=== PATIENT | female | born 1955 | race Caucasian/White ===

== ENCOUNTER 2019-09-26 08:16 | Outpatient (CLI) | payer OTHER, SELFPAY ==
--- NOTE | ~2019-09-26 | XR_ITS ---
EXAMINATION: XR shoulder RT min 2V DATE: 09/26/2019 15:11 INDICATION: Right shoulder pain. TECHNIQUE: 4 views of right shoulder were obtained. COMPARISON: None. FINDINGS: Bone alignment is normal. No fracture. Glenohumeral joint is normal. 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 IMPRESSION: 1. Osteolysis of distal clavicle, which may be seen with repetitive microtrauma, rheumatoid arthritis , or hyperparathyroidism. Reviewed, dictated and finalized at location A. IMPRESSION: 1. Osteolysis of distal clavicle, which may be seen with repetitive microtrauma , rheumatoid arthritis, or hyperparathyroidism.
[2019-09-26 08:46] LABS: Hematocrit 40.1 % (37.0-47.0); Hemoglobin 13.1 g/dL (12.0-15.0); Mean Corpuscular HGB Conc 32.7 g/dl (32-36); Mean Corpuscular Hemoglobin 29.5 pg (26-34); Mean Corpuscular Volume 90.3 fl (80-100); Mean Platelet Volume 9.6 fl (7.4-10.4); Platelet Count Result 265 k/mm3 (150-375); Red Blood Count 4.44 M/mm3 (4.2-5.4); Red Cell Distribution Width 12.8 % (11.5-14.5); White Blood Count 6.3 K/mm3 (4.5-10.0)
[2019-09-26 09:04] LABS: Alanine Aminotransferase 11 U/L (4-35); Albumin Level 4.4 g/dL (3.5-5.1); Alkaline Phosphatase 56 U/L (38-126); Aspartate Amino Transferase 32 U/L (14-36); Bilirubin,Total 0.6 mg/dL (0.2-1.3); Blood Urea Nitrogen 11 mg/dL (7-17); Calcium 9.2 mg/dL (8.4-10.2); Carbon Dioxide 32 mmol/L (22-30); Chloride 101 mmol/L (98-107); Cholesterol 218 mg/dL (0-200); Estimated Glomerular Filt Rate > 60; Glucose 94 mg/dL (65-105); HDL Direct 44 mg/dL; Sodium 137 mmol/L (137-145); Triglycerides 107 mg/dL (<150)
[2019-09-26 09:15] LABS: LDL Cholesterol Direct 145 mg/dL
[2019-09-26 09:30] LABS: Thyroid Stimulating Hormone 0.966 uIU/mL (0.465-4.680)
== END 2019-09-26 08:17 | disposition home or self-care (01) ==
PROVIDERS: PCP Internal Medicine; Visit Provider Internal Medicine
DX: M25.521 Pain in right elbow (principal); R53.83 Other fatigue; I10 Essential (primary) hypertension
CPT/HCPCS: 36415; 73030; 80053; 80061; 84443; 85027

== ENCOUNTER 2019-10-03 11:37 | Outpatient (CLI) | payer OTHER, SELFPAY ==
[2019-10-03 13:21] LABS: Rheumatoid Factor < 8.6 IU/ML (<12)
[2019-10-03 13:47] LABS: Erythrocyte Sedimentation Rate 8 mm/hr (0-20)
[2019-10-07 11:32] LABS: Anti Cyclic Citrullinated Pept <16 Units (<20)
== END 2019-10-03 11:38 | disposition home or self-care (01) ==
PROVIDERS: PCP Internal Medicine; Visit Provider Physician Assistant Medical
DX: M89.8X1 Other specified disorders of bone, shoulder (principal)
CPT/HCPCS: 36415; 85652; 86200; 86430

== ENCOUNTER 2019-10-13 07:13 | Outpatient (CLI) | payer OTHER, SELFPAY ==
--- NOTE | ~2019-10-13 | MM_ITS ---
EXAMINATION: MM screening [facility] BI w pamela HISTORY: Screening mammogram TECHNIQUE: Craniocaudal and mediolateral oblique 3-D tomosynthesis images were obtained and synthetic 2-D images were generated. CAD analysis was submitted and interpreted. COMPARISON: 08/19/2018, 07/10/2017, 06/30/2016 BREAST PARENCHYMAL COMPOSITION: The breasts are heterogeneously dense, which may obscure small masses . FINDINGS: Scattered benign-appearing calcifications are present. A stable intramammary lymph node is present in the upper outer quadrant of the left breast. There is no evidence of suspicious mass, calc ification, or architectural distortion to suggest malignancy in either breast. There has been no susp icious interval change. IMPRESSION: 1. No mammographic evidence of malignancy. 2. Recommend routine screening mammography in one year. BI-RADS Category 2: Benign finding(s). Reviewed, dictated and finalized at location A.
== END 2019-10-13 07:14 | disposition home or self-care (01) ==
LOC: ANHIMG 07:16
PROVIDERS: PCP Internal Medicine; Visit Provider Internal Medicine
DX: Z12.31 Encounter for screening mammogram for malignant neoplasm of breast (principal)
CPT/HCPCS: 77063; 77067

== ENCOUNTER 2020-10-22 07:48 | Outpatient (CLI) | payer OTHER, SELFPAY ==
--- NOTE | ~2020-10-22 | MM_ITS ---
EXAMINATION: MM screening [facility] BI w pamela HISTORY: Screening mammogram TECHNIQUE: Craniocaudal and mediolateral oblique 3-D tomosynthesis images were obtained and synthetic 2-D images were generated. CAD analysis was submitted and interpreted. COMPARISON: 10/13/2019, 08/19/2018, 07/10/2017 BREAST PARENCHYMAL COMPOSITION: The breasts are heterogeneously dense, which may obscure small masses . FINDINGS: There is no evidence of suspicious mass, calcification, or architectural distortion to sugg est malignancy in either breast. There has been no suspicious interval change. IMPRESSION: 1. No mammographic evidence of malignancy. 2. Recommend routine screening mammography in one year. BI-RADS Category 1: Negative Reviewed, dictated and finalized at location A.
== END 2020-10-22 07:49 | disposition home or self-care (01) ==
LOC: ANHIMG 07:49
PROVIDERS: PCP Internal Medicine; Visit Provider Internal Medicine
DX: Z12.31 Encounter for screening mammogram for malignant neoplasm of breast (principal)
CPT/HCPCS: 77063; 77067

== ENCOUNTER 2021-03-24 15:57 | Outpatient (CLI) | payer OTHER, SELFPAY ==
[2021-03-24 18:00] LABS: SARS-CoV-2 RNA PCR Negative (Negative)
== END 2021-03-24 15:58 | disposition home or self-care (01) ==
LOC: CHSLAB 16:05
PROVIDERS: PCP Internal Medicine; Visit Provider Internal Medicine
DX: Z20.822 Contact with and (suspected) exposure to COVID-19 (principal); Z03.818 Encounter for observation for suspected exposure to other biological agents ruled out
CPT/HCPCS: C9803; U0003; U0005

== ENCOUNTER 2021-04-04 15:06 | Outpatient (CLI) | payer OTHER, SELFPAY ==
[2021-04-04 18:45] LABS: SARS-CoV-2 RNA PCR Positive (Negative)
== END 2021-04-04 15:07 | disposition home or self-care (01) ==
LOC: CHSLAB 15:08
PROVIDERS: PCP Internal Medicine; Visit Provider Internal Medicine
DX: U07.1 COVID-19 (principal)
CPT/HCPCS: C9803; U0003; U0005

== ENCOUNTER 2021-12-22 07:24 | Outpatient (CLI) | payer OTHER, SELFPAY ==
--- NOTE | ~2021-12-22 | MM_ITS ---
EXAMINATION: MM screening [facility] BI w pamela HISTORY: Screening mammogram TECHNIQUE: Craniocaudal and mediolateral oblique 3-D tomosynthesis images were obtained and synthetic 2-D images were generated. CAD analysis was submitted and interpreted. COMPARISON: No prior mammogram is available for comparison at this institution. BREAST PARENCHYMAL COMPOSITION: FINDINGS: Left breast: There is no evidence of suspicious mass, calcification, or architectural disto rtion to suggest malignancy in the left breast. There has been no suspicious interval change. Right breast: There is asymmetry on the right, with interval increased density suggested in the poste rior central right breast on MLO projection. Diagnostic right mammogram is recommended, with ultrasou nd if required IMPRESSION: 1. Right mammographic asymmetry 2. Diagnostic right mammogram is recommended, with ultrasound if required BI-RADS Category 0: Incomplete: Needs additional imaging evaluation. Reviewed, dictated and finalized at location A.
== END 2021-12-22 07:25 | disposition home or self-care (01) ==
PROVIDERS: PCP Family Medicine; Visit Provider Physician Assistant Medical
DX: Z12.31 Encounter for screening mammogram for malignant neoplasm of breast (principal); R92.8 Other abnormal and inconclusive findings on diagnostic imaging of breast
CPT/HCPCS: 77063; 77067

== ENCOUNTER 2022-01-06 10:20 | Outpatient (CLI) | payer OTHER, SELFPAY ==
[2022-01-06 11:06] LABS: Basophils Absolute Auto 0.1 K/mm3 (0.0-0.1); Basophils Percent Auto 0.6 % (0.2-1.2); Eosinophils Absolute Auto 0.1 K/mm3 (0-0.3); Eosinophils Percent Auto 1.4 % (0-4.4); Hematocrit 40.8 % (37.0-47.0); Hemoglobin 13.4 g/dL (12.0-15.0); Immature Granulocyte Absolute 0.03 K/mm3 (0.00-0.031); Immature Granulocyte Percent A 0.4 % (0-0.5); Lymphocytes Absolute Auto 2.07 K/mm3 (0.9-3.2); Lymphocytes Percent Auto 25.9 % (18.3-44.2); Mean Corpuscular HGB Conc 32.8 g/dl (32-36); Mean Corpuscular Hemoglobin 30.1 pg (26-34); Mean Corpuscular Volume 91.7 fl (80-100); Mean Platelet Volume 9.7 fl (7.4-10.4); Monocytes Absolute Auto 0.5 K/mm3 (0.1-0.6); Monocytes Percent Auto 5.9 % (2.6-8.5); Neutrophils Absolute Auto 5.3 K/mm3 (1.3-6.7); Neutrophils Percent Auto 65.8 % (45.5-73.1); Platelet Count Result 269 k/mm3 (150-375); Red Blood Count 4.45 M/mm3 (4.2-5.4); Red Cell Distribution Width 12.8 % (11.5-14.5)
[2022-01-06 11:17] LABS: Alanine Aminotransferase 14 U/L (6-35); Albumin Level 4.4 g/dL (3.5-5.1); Alkaline Phosphatase 62 U/L (38-126); Anion Gap 7 mmol/L (8-16); Aspartate Amino Transferase 32 U/L (14-36); Bilirubin,Total 0.5 mg/dL (0.2-1.3); Blood Urea Nitrogen 9 mg/dL (7-17); Calcium 9.1 mg/dL (8.4-10.2); Carbon Dioxide 31 mmol/L (22-30); Chloride 99 mmol/L (98-107); Cholesterol 231 mg/dL (0-200); Estimated Glomerular Filt Rate > 60; Glucose 91 mg/dL (65-110); HDL Direct 49 mg/dL; Potassium 4.1 mmol/L (3.4-5.0); Sodium 137 mmol/L (137-145); Triglycerides 124 mg/dL (<150)
[2022-01-06 11:28] LABS: LDL Cholesterol Direct 146 mg/dL
[2022-01-06 11:47] LABS: Thyroid Stimulating Hormone 0.352 uIU/mL (0.465-4.680)
[2022-01-06 12:57] LABS: Vitamin D 25 Hydroxy 47.6 ng/mL
[2022-01-06 17:28] LABS: Free T4 Free Thyroxine 1.13 ng/mL (0.78-2.19)
[2022-01-06 17:48] LABS: Total Triiodothyronine (T3) 1.07 NG/ML (0.97-1.69)
[2022-01-09 01:58] LABS: Thyroid Peroxidase Antibodies 3 IU/mL (<9)
[2022-01-09 17:05] LABS: Thyrotropin Receptor Antibody <1.00 IU/L (<=2.00)
== END 2022-01-06 10:21 | disposition home or self-care (01) ==
PROVIDERS: PCP Physician Assistant Medical; Visit Provider Physician Assistant Medical
DX: Z00.00 Encounter for general adult medical examination without abnormal findings (principal); E05.90 Thyrotoxicosis, unspecified without thyrotoxic crisis or storm; R00.2 Palpitations; K21.9 Gastro-esophageal reflux disease without esophagitis; K58.9 Irritable bowel syndrome, unspecified; R39.15 Urgency of urination
CPT/HCPCS: 36415; 80053; 80061; 82306; 83519; 83735; 84439; 84443; 84480; 85025; 86376

== ENCOUNTER 2022-01-13 11:54 | Outpatient (CLI) | payer OTHER, MEDICARE, SELFPAY ==
--- NOTE | ~2022-01-13 | MM_ITS ---
EXAMINATION: MM diagnostic [facility] RT w pamela HISTORY: Focal asymmetries of the right breast on screening mammogram TECHNIQUE: Additional 3-D tomosynthesis images of the right breast were performed and synthetic 2-D i mages were generated. CAD analysis was submitted and interpreted. COMPARISON: 12/22/2021, 10/22/2020, 10/13/2019, 08/19/2018 FINDINGS: There is a return to baseline fibroglandular appearance with spot compression of the right breast in the areas questioned on screening mammogram. No suspicious mass, calculus, or architectural distortion are identified. IMPRESSION: 1. No mammographic evidence of malignancy. 2. Recommend routine screening mammography in one year. BI-RADS Category 1: Negative Reviewed, dictated and finalized at location A.
== END 2022-01-13 11:55 | disposition home or self-care (01) ==
LOC: ANHIMG 11:57
PROVIDERS: PCP Physician Assistant Medical; Visit Provider Physician Assistant Medical
DX: R92.8 Other abnormal and inconclusive findings on diagnostic imaging of breast (principal)
CPT/HCPCS: 77061; 77065; G0279

== ENCOUNTER 2022-02-10 00:40 | Day surgery (SDC) | payer OTHER, MEDICARE, SELFPAY ==
[2022-02-01 14:05] VITALS: BMI 28.3
[2022-02-01 14:31] VITALS: BMI 28.3
[2022-02-10 11:47] VITALS: BP 107/85; PULSE 90; RESP 20; TEMP 36.1; O2SAT 98; BMI 29.1
[2022-02-10] MEDS: LACTATED RINGERS 1,000 ML 150 ML IV CONT (11:58)
--- NOTE | 2022-02-10 12:10 | WPDANESEPPF ---
Anes - Initial Pre Proc Eval Procedure: Operation Date: 02/10/22 13:00 Proposed Procedures p Esophagogastroduodenoscopy & Colonoscopy - Bobby Serrano MD Date/Time: 02/10/22 12:10 Surgeon: Bobby Serrano MD Pre Op Diagnosis: dysphagia, diarrhea, change in bowel habits Patient Data Age: 66 Gender: F Height: 1.6 m Weight: 74.7 kg Last Vital Signs Temp 96.9 F L 02/10/22 11:47 Pulse 90 02/10/22 11:47 Resp 20 02/10/22 11:47 BP 107/85 02/10/22 11:47 Pulse Ox 98 02/10/22 11:47 O2 Del Method Room Air 02/10/22 11:47 Allergies Allergy/AdvReac Type Severity Reaction Status Date / Time No Known Allergies Allergy Verified 02/10/22 11:45 Home Medications Medication Instructions Recorded Confirmed Type multivitamin 1 tablet PO DAILY 05/11/20 02/10/22 History acetaminophen 500 mg capsule 500 mg PO Q6H PRN Pain 12/27/21 02/10/22 History (Tylophen) ascorbic acid (vitamin C) 500 mg 500 mg PO DAILY 01/01/22 02/10/22 History tablet cholecalciferol (vitamin D3) 25 25 mcg PO BID 01/01/22 02/10/22 History mcg (1,000 unit) capsule krill oil 500 mg capsule 500 mg PO DAILY 01/01/22 02/10/22 History pyridoxine (vitamin B6) 100 mg 100 mg PO DAILY 01/01/22 02/10/22 History tablet zinc gluconate 50 mg tablet 50 mg PO DAILY 01/01/22 02/10/22 History omeprazole 20 mg tablet,delayed 20 mg PO DAILY #30 tabs 01/12/22 02/10/22 Rx release Patient hx anesthesia problems: none Family hx anesthesia problems: none Results Review: All pre-operative results and documents have been reviewed as part of the pre-operative evaluation. [facility] Past Medical History Medical History (Updated 01/12/22 @ 11:07 by Jessie Agarwal, VERONICA) Asthma Borderline hypertension Change in bowel habit Dysphagia Family history of esophageal cancer Family hx of colon cancer GERD with esophagitis Hyperthyroidism Intermittent diarrhea Overweight (BMI 25.0-29.9) Surgical History Surgical History History of bladder suspension procedure History of hysterectomy 2002 History of tonsillectomy age 3-4yo Family History Family History Father Esophageal cancer Alcoholism Mother Carcinoma of colon Lung cancer Hypothyroidism Social History Social History Smoking status: Never smoker Alcohol intake: current Drinks per week: 1 Substance use: never Substance use type: does not use Living arrangements: with family Gender identity (if verbalized by the patient): Female Spiritual care concerns: No Anes - Eval Final PreProcedure Day of Procedure 02/10/22 12:10 Patient weight: overweight Airway: Mallampati scale ASA classification: II Anesthesia type and monitoring: general GIVS and standard monitoring Results Review: All pre-operative results and documents have been reviewed as part of the pre-operative evaluation. Informed Consent: The patient's anesthetic plan and its attendant risks and benefits were discussed with the patient/family/POA. Questions were solicited and answers provided to the satisfaction of the patient/family/POA.
--- NOTE | 2022-02-10 12:20 | WPDHPUPDATE1 ---
History and Physical Update Update Date/Time: 02/10/22 12:20 History and Physical has been reviewed, including an updated exam of the patient. There are NO changes in the patient's condition. Risks, benefits, and alternatives have been discussed and questions answered. Patient agrees to proceed with procedure.
--- NOTE | 2022-02-10 12:41 | SUR.OPER ---
EGD start 1231 end 1235, Colonoscopy start 1241 end 1252
[2022-02-10 12:57] VITALS: BP 109/63; PULSE 74; RESP 16; O2SAT 99
[2022-02-10 13:07] VITALS: BP 127/68; PULSE 73; RESP 24; O2SAT 99
[2022-02-10 13:17] VITALS: BP 149/80; PULSE 72; RESP 20; O2SAT 98
== END 2022-02-10 13:40 | disposition home or self-care (01) ==
PROVIDERS: PCP Physician Assistant Medical; Visit Provider Internal Medicine Gastroenterology
PROC: 0DJ08ZZ Inspection of Upper Intestinal Tract, Via Natural or Artificial Opening Endoscopic (ICD-10-PCS; CPT 43235; principal; 2022-02-10 13:00)
DX: K57.30 Diverticulosis of large intestine without perforation or abscess without bleeding (principal); K64.8 Other hemorrhoids; Z80.0 Family history of malignant neoplasm of digestive organs; K21.9 Gastro-esophageal reflux disease without esophagitis; K44.9 Diaphragmatic hernia without obstruction or gangrene; K29.70 Gastritis, unspecified, without bleeding; R13.10 Dysphagia, unspecified; K58.9 Irritable bowel syndrome, unspecified; E05.90 Thyrotoxicosis, unspecified without thyrotoxic crisis or storm
CPT/HCPCS: 45380; 43239; 88305; J2704; J7120

== ENCOUNTER 2022-03-23 12:35 | Outpatient (CLI) | payer OTHER, MEDICARE, SELFPAY | END 2022-03-23 12:36 | disposition home or self-care (01) | LOC: ANHLAB 12:39 | PROVIDERS: PCP Physician Assistant Medical; Visit Provider Physician Assistant Medical | DX: E05.90 Thyrotoxicosis, unspecified without thyrotoxic crisis or storm (principal) | CPT/HCPCS: 36415; 84443 ==

== ENCOUNTER 2022-08-09 08:58 | Outpatient (CLI) | payer MEDICARE, OTHER, SELFPAY ==
--- NOTE | 2022-08-25 16:40 | WPDHOMESLEEP ---
Sleep Study - Home Unattended Date of Study: 08/09/22 Ordering Provider: Gabriel Wiley DO Interpreting Provider: Daphnie Sepulveda DO Home Sleep Study Type: Watch PAT Height: 1.63 m Weight: 74.843 kg Body Mass Index: 28.3 Neck Circumference (inches): 14 [place]: 8 Reason for Sleep Study Snoring, daytime hypersomnia Sleep History The patient is a 66-year-old female with asthma, dysphasia, GERD and hyperthyroidism that had a sleep study ordered by her physical education aide for evaluation of sleep apnea. She denies awakening from sleep short of breath. She occasionally awakens at night with heartburn, belching or cough. She rarely snores and is never loud enough that others complain. She denies having trouble sleeping when she has a cold. She denies waking up gasping for air throughout the night. She denies having breathing problems at night observed by herself or others. She occasionally sweats excessively at night. She occasionally has heart palpitations or irregular heartbeats during the night. She occasionally falls asleep during the day but rarely falls asleep while driving. He denies sleep paralysis, cataplexy and hypnagogic / hypnopompic hallucinations. She rarely has trouble school work due to sleepiness. She denies feeling afraid of going to sleep. She rarely has nightmares rarely remembers her dreams. She occasionally has thoughts racing through her mind. She occasionally feels sad or depressed. She frequently has anxiety. She occasionally has muscular tension. She denies noticing parts of body jerk. She denies kicking during the night. He denies having crawling and aching feelings in her legs and denies having leg pain during the night. She occasionally grinds her teeth during sleep but never awakens with morning jaw pain. She is occasionally bothered by pain during the day but never awakened by pain during the night. He denies waking up feeling stiff in the morning. She occasionally wakes up with sore or achy muscles. She rarely wakes up with pain in the neck, spine other joints. She goes to bed between 10 30-10 40 5:00 p.m. on weekdays and around 11:30 p.m. on weekends. It takes her 20 minutes to fall asleep. She wakes up 1-2 times throughout the night to urinate and can not either fall asleep within 5 minutes or is unable to fall back asleep she wakes up at 6:15 a.m. on weekdays and around 8:00 a.m. on the weekends. She typically gets 7 hours of sleep per night. She will stay in bed for 15-20 minutes after waking up in the morning. She currently lives with her . She does not consume any caffeinated beverages within 2 hours of bedtime. She denies engaging in physical exercise before bedtime. She will read before falling asleep. She will occasionally watch television before falling asleep. She will occasionally take naps on afternoon or the evening and they are ulceration. She drinks 2-3 caffeinated beverages per day. He drinks alcoholic beverages 1-2 times per month. She denies tobacco and recreational drug use. [facility] Past Medical History Medical History Asthma Borderline hypertension Change in bowel habit Dysphagia Family history of esophageal cancer Family hx of colon cancer GERD with esophagitis Hyperthyroidism Intermittent diarrhea Overweight (BMI 25.0-29.9) Surgical History Surgical History History of bladder suspension procedure History of hysterectomy 2002 History of tonsillectomy age 3-4yo Family History Family History Father Esophageal cancer Alcoholism Mother Carcinoma of colon Lung cancer Hypothyroidism Social History Social History Smoking status: Never smoker Alcohol intake: current Drinks per week: 1 Substance use: never Substance
[2022-08-25 16:45] VITALS: BMI 28.3
--- NOTE | 2023-03-09 14:26 | SLEEP ---
pt is to return to lab for titration
== END 2022-08-11 09:37 | disposition home or self-care (01) ==
LOC: ANHCSM 09:14
PROVIDERS: PCP Physician Assistant Medical; Visit Provider Internal Medicine Cardiovascular Disease
DX: G47.10 Hypersomnia, unspecified (principal); G47.33 Obstructive sleep apnea (adult) (pediatric)
CPT/HCPCS: 95800

== ENCOUNTER 2022-08-16 15:08 | Outpatient (CLI) | payer MEDICARE, OTHER, SELFPAY ==
--- NOTE | ~2022-08-16 | US_ITS ---
EXAMINATION: US soft tissue UE LT DATE: 08/16/2022 15:34 INDICATION: Localized swelling, mass and lump at the palmar aspect of the left third digit TECHNIQUE: Multiple grayscale and Doppler ultrasound images of the region of concern at the palmar as pect of the left third digit were obtained. COMPARISON: None FINDINGS: 1.3 x 1.1 x 0.5 cm anechoic cyst located in the subcutaneous tissues superficial to the flexor tendon sheath most consistent with a ganglion cyst likely arising from one of the adjacent joint spaces. Th e underlying flexor tendon appears normal with no surrounding tenosynovitis. IMPRESSION: 1. 1.3 x 1.1 x 0.5 cm anechoic likely ganglion cyst in the palmar subcutaneous tissues at the left th ird digit region of concern. Reviewed, dictated and finalized at location A. IMPRESSION: 1. 1.3 x 1.1 x 0.5 cm anechoic likely ganglion cyst in the palmar subcutaneous tissues at the left third digit region of concern.
== END 2022-08-16 15:09 | disposition home or self-care (01) ==
LOC: ANHIMG 15:14
PROVIDERS: PCP Physician Assistant Medical; Visit Provider Physician Assistant Medical
DX: R22.32 Localized swelling, mass and lump, left upper limb (principal)
CPT/HCPCS: 76882

== ENCOUNTER 2022-09-26 16:04 | Outpatient (CLI) | payer MEDICARE, OTHER, SELFPAY ==
[2022-09-26 17:01] LABS: Alanine Aminotransferase 14 U/L (6-35); Albumin Level 4.5 g/dL (3.5-5.1); Alkaline Phosphatase 63 U/L (38-126); Aspartate Amino Transferase 37 U/L (14-36); Bilirubin,Total 0.3 mg/dL (0.2-1.3)
== END 2022-09-26 16:05 | disposition home or self-care (01) ==
PROVIDERS: PCP Physician Assistant Medical
DX: B35.1 Tinea unguium (principal)
CPT/HCPCS: 36415; 80076

== ENCOUNTER 2023-01-05 15:32 | Outpatient (CLI) | payer MEDICARE, OTHER, SELFPAY ==
[2023-01-05 16:11] LABS: Alanine Aminotransferase 13 U/L (6-35); Aspartate Amino Transferase 36 U/L (14-36)
== END 2023-01-05 15:33 | disposition home or self-care (01) ==
PROVIDERS: PCP Physician Assistant Medical; Visit Provider Physician Assistant Medical
DX: Z79.899 Other long term (current) drug therapy (principal)
CPT/HCPCS: 36415; 84450; 84460

== ENCOUNTER 2023-01-17 10:28 | Outpatient (CLI) | payer MEDICARE, OTHER, SELFPAY ==
--- NOTE | ~2023-01-17 | MM_ITS ---
EXAMINATION: MM screening [facility] BI w pamela HISTORY: Screening mammogram TECHNIQUE: Craniocaudal and mediolateral oblique 3-D tomosynthesis images were obtained and synthetic 2-D images were generated. CAD analysis was submitted and interpreted. COMPARISON: 01/13/2022 right diagnostic mammogram 12/22/2021, 10/22/2020, 10/13/2019 bilateral screening mammogram examinations BREAST PARENCHYMAL COMPOSITION: The breasts are heterogeneously dense, which may obscure small masses . FINDINGS: Stable benign fibroglandular asymmetry since 10/13/2019. Stable benign circumscribed low-dens ity opacity consistent with intramammary lymph node in the posterior upper outer left breast. There is no evidence of suspicious mass, calcification, or architectural distortion to suggest malig guero in either breast. There has been no suspicious interval change. IMPRESSION: 1. No mammographic evidence of malignancy. 2. Recommend routine screening mammography in one year. BI-RADS Category 2: Benign finding(s). Reviewed, dictated and finalized at location A.
== END 2023-01-17 10:29 | disposition home or self-care (01) ==
LOC: CHSIMG 10:29
PROVIDERS: PCP Physician Assistant Medical; Visit Provider Physician Assistant Medical
DX: Z12.31 Encounter for screening mammogram for malignant neoplasm of breast (principal)
CPT/HCPCS: 77063; 77067

== ENCOUNTER 2023-03-06 08:36 | Outpatient (CLI) | payer MEDICARE, OTHER, SELFPAY ==
[2023-03-06 09:21] LABS: Alanine Aminotransferase 9 U/L (6-35); Albumin Level 4.4 g/dL (3.5-5.1); Alkaline Phosphatase 53 U/L (38-126); Anion Gap 5 mmol/L (8-16); Aspartate Amino Transferase 28 U/L (14-36); Bilirubin,Total 0.5 mg/dL (0.2-1.3); Blood Urea Nitrogen 16 mg/dL (7-17); Calcium 8.9 mg/dL (8.4-10.2); Carbon Dioxide 33 mmol/L (22-30); Chloride 101 mmol/L (98-107); Cholesterol 243 mg/dL (0-200); Estimated Glomerular Filt Rate > 60; Glucose 91 mg/dL (65-110); HDL Direct 51 mg/dL; Potassium 4.1 mmol/L (3.4-5.0); Sodium 139 mmol/L (137-145); Triglycerides 117 mg/dL (<150)
[2023-03-06 09:32] LABS: LDL Cholesterol Direct 149 mg/dL
== END 2023-03-06 08:37 | disposition home or self-care (01) ==
PROVIDERS: PCP Physician Assistant Medical; Visit Provider Internal Medicine Cardiovascular Disease
DX: G47.10 Hypersomnia, unspecified (principal); E05.90 Thyrotoxicosis, unspecified without thyrotoxic crisis or storm
CPT/HCPCS: 36415; 80053; 80061

== ENCOUNTER 2023-03-15 08:09 | Outpatient (CLI) | payer MEDICARE, OTHER, SELFPAY ==
[2023-04-10 11:28] VITALS: BMI 26.2
--- NOTE | 2023-04-10 11:28 | WPDSLEEPSTUD ---
Sleep Study Date of Study: 03/15/23 Ordering Provider: Dimitri Zamudio APRN Interpreting Physician: Daphnie Sepulveda, Sleep Study Type: Polysomnogram Height: 1.63 m Weight: 69.4 kg Body Mass Index: 26.2 Neck Circumference (inches): 13.5 [place]: 5 Reason for Sleep Study The patient is here for a Mandibular Advancement Device titration study. Sleep History The patient is a 67-year-old female with asthma, dysphasia, GERD and hyperthyroidism that had a sleep study ordered by her mat machine tender for evaluation of sleep apnea.? She denies awakening from sleep short of breath.? She occasionally awakens at night with heartburn, belching or cough.? She rarely snores and is never loud enough that others complain.? She denies having trouble sleeping when she has a cold.? She denies waking up gasping for air throughout the night.? She denies having breathing problems at night observed by herself or others.? She occasionally sweats excessively at night.? She occasionally has heart palpitations or irregular heartbeats during the night.? She occasionally falls asleep during the day but rarely falls asleep while driving.? He denies sleep paralysis, cataplexy and hypnagogic / hypnopompic hallucinations.? She rarely has trouble school work due to sleepiness.? She denies feeling afraid of going to sleep.? She rarely has nightmares rarely remembers her dreams.? She occasionally has thoughts racing through her mind.??She occasionally feels sad or depressed.? She frequently has anxiety.?She occasionally has muscular tension.? She denies noticing parts of body jerk.? She denies kicking during the night.? She denies having crawling and aching feelings in her legs and denies having leg pain during the night.? She occasionally grinds her teeth during sleep but never awakens with morning jaw pain.? She is occasionally bothered by pain during the day but never awakened by pain during the night.? He denies waking up feeling stiff in the morning.? She occasionally wakes up with sore or achy muscles.? She rarely wakes up with pain in the neck, spine other joints.? She goes to bed between 10 30-10 40 5:00 p.m. on weekdays and around 11:30 p.m. on weekends.? It takes her 20 minutes to fall asleep.? She wakes up 1-2 times throughout the night to urinate and can not either fall asleep within 5 minutes or is unable to fall back asleep she wakes up at 6:15 a.m. on weekdays and around 8:00 a.m. on the weekends.? She typically gets 7 hours of sleep per night.? She will stay in bed for 15-20 minutes after waking up in the morning.? She currently lives with her .? She does not consume any caffeinated beverages within 2 hours of bedtime.? She denies engaging in physical exercise before bedtime.? She will read before falling asleep.? She will occasionally watch television before falling asleep.? She will occasionally take naps on afternoon or the evening and they are ulceration.? She drinks 2-3 caffeinated beverages per day.? She drinks alcoholic beverages 1-2 times per month.? She denies tobacco and recreational drug use. [facility] Past Medical History Medical History Asthma Borderline hypertension Change in bowel habit Dysphagia Family history of esophageal cancer Family hx of colon cancer GERD with esophagitis Hyperthyroidism Intermittent diarrhea Overweight (BMI 25.0-29.9) Surgical History Surgical History History of bladder suspension procedure History of hysterectomy 2002 History of tonsillectomy age 3-4yo Family History Family History Father Esophageal cancer Alcoholism Mother Carcinoma of colon Lung cancer Hypothyroidism Social History Social History Smoking status: Never smoker Alcohol intake: current Drinks per week: 1 Sub
== END 2023-03-16 06:50 | disposition home or self-care (01) ==
LOC: ANHCSM 08:10
PROVIDERS: PCP Physician Assistant Medical; Visit Provider Nurse Practitioner Family
DX: G47.33 Obstructive sleep apnea (adult) (pediatric) (principal)
CPT/HCPCS: 95810

== ENCOUNTER 2023-06-25 10:05 | Outpatient (CLI) | payer MEDICARE, OTHER, SELFPAY ==
[2023-06-25 10:30] LABS: Alanine Aminotransferase 10 U/L (6-35); Albumin Level 4.2 g/dL (3.5-5.1); Alkaline Phosphatase 60 U/L (38-126); Anion Gap 2 mmol/L (8-16); Aspartate Amino Transferase 31 U/L (14-36); Bilirubin,Total 0.5 mg/dL (0.2-1.3); Blood Urea Nitrogen 16 mg/dL (7-17); Calcium 9.1 mg/dL (8.4-10.2); Carbon Dioxide 34 mmol/L (22-30); Chloride 102 mmol/L (98-107); Cholesterol 191 mg/dL (0-200); Estimated Glomerular Filt Rate > 60; Glucose 95 mg/dL (65-110); HDL Direct 46 mg/dL; Potassium 4.1 mmol/L (3.4-5.0); Sodium 138 mmol/L (137-145); Triglycerides 129 mg/dL (<150)
[2023-06-25 10:41] LABS: LDL Cholesterol Direct 128 mg/dL
== END 2023-06-25 10:06 | disposition home or self-care (01) ==
LOC: ANHLAB 10:08
PROVIDERS: PCP Physician Assistant Medical; Visit Provider Internal Medicine Cardiovascular Disease
DX: E78.5 Hyperlipidemia, unspecified (principal)
CPT/HCPCS: 36415; 80053; 80061

== ENCOUNTER 2024-01-31 08:25 | Outpatient (CLI) | payer MEDICARE, OTHER, SELFPAY ==
[2024-01-31 09:48] LABS: Basophils Percent Auto 0.5 % (0.2-1.2); Eosinophils Absolute Auto 0.2 K/mm3 (0-0.3); Eosinophils Percent Auto 2.5 % (0-4.4); Hematocrit 41.1 % (37.0-47.0); Hemoglobin 13.4 g/dL (12.0-15.0); Immature Granulocyte Absolute 0.02 K/mm3 (0.00-0.031); Immature Granulocyte Percent A 0.3 % (0-0.5); Lymphocytes Absolute Auto 1.92 K/mm3 (0.9-3.2); Lymphocytes Percent Auto 31.7 % (18.3-44.2); Mean Corpuscular HGB Conc 32.6 g/dl (32-36); Mean Corpuscular Hemoglobin 29.5 pg (26-34); Mean Corpuscular Volume 90.5 fl (80-100); Mean Platelet Volume 9.9 fl (7.4-10.4); Monocytes Absolute Auto 0.5 K/mm3 (0.1-0.6); Monocytes Percent Auto 8.9 % (2.6-8.5); Neutrophils Absolute Auto 3.4 K/mm3 (1.3-6.7); Neutrophils Percent Auto 56.1 % (45.5-73.1); Platelet Count Result 251 k/mm3 (150-375); Red Blood Count 4.54 M/mm3 (4.2-5.4); Red Cell Distribution Width 13.2 % (11.5-14.5); White Blood Count 6.1 K/mm3 (4.5-10.0)
[2024-01-31 09:59] LABS: Alanine Aminotransferase 10 U/L (6-35); Albumin Level 4.2 g/dL (3.5-5.1); Alkaline Phosphatase 59 U/L (38-126); Anion Gap 6 mmol/L (4-12); Aspartate Amino Transferase 36 U/L (14-36); Bilirubin,Total 0.5 mg/dL (0.2-1.3); Blood Urea Nitrogen 13 mg/dL (7-17); Calcium 8.9 mg/dL (8.4-10.2); Carbon Dioxide 33 mmol/L (22-30); Chloride 100 mmol/L (98-107); Cholesterol 207 mg/dL (0-200); Estimated Glomerular Filt Rate > 60; Glucose 81 mg/dL (65-110); HDL Direct 51 mg/dL; Potassium 3.8 mmol/L (3.4-5.0); Sodium 139 mmol/L (137-145); Triglycerides 105 mg/dL (<150)
[2024-01-31 10:10] LABS: LDL Cholesterol Direct 117 mg/dL
== END 2024-01-31 08:26 | disposition home or self-care (01) ==
LOC: ANHLAB 08:27
PROVIDERS: PCP Physician Assistant Medical; Visit Provider Physician Assistant Medical
DX: Z01.818 Encounter for other preprocedural examination (principal); E28.39 Other primary ovarian failure; E78.5 Hyperlipidemia, unspecified; K21.9 Gastro-esophageal reflux disease without esophagitis
CPT/HCPCS: 36415; 80053; 80061; 85025

== ENCOUNTER 2024-03-10 13:16 | Outpatient (CLI) | payer MEDICARE, OTHER, SELFPAY ==
--- NOTE | ~2024-03-10 | MM_ITS ---
EXAMINATION: MM screening [facility] BI w pamela HISTORY: Screening TECHNIQUE: Craniocaudal and mediolateral oblique 3-D tomosynthesis images were obtained and synthetic 2-D images were generated. CAD analysis was submitted and interpreted. COMPARISON: Comparison to multiple prior studies sequentially, with oldest reviewed study dated 08/19. BREAST PARENCHYMAL COMPOSITION: Dense: The breasts are heterogeneously dense, which may obscure small masses FINDINGS: There is no evidence of suspicious mass, calcification, or architectural distortion to sugg est malignancy in either breast. There has been no suspicious interval change. IMPRESSION: 1. No mammographic evidence of malignancy. 2. Recommend routine screening mammography in one year. BI-RADS Category 1: Negative Reviewed, dictated and finalized at location B. [employer]ING IN[employer]
--- NOTE | ~2024-03-10 | DEXA_ITS ---
Bone Density Report Name: LUDMILA NOLAN Age: 68 Sex: Female Ethnicity: White Date of : 1955 Indication: postmenopausal; screening for osteoporosis; parental hip fracture; hysterectomy; Referring Provider: ELVIA CAMPOS Study: Bone densitometry was performed. Exam Date: March 10, 2024 Accession number: [id number] Bone Density: Region BMD T-score Z-score Classification AP Spine(L1, L2, L3) 1.193 1.6 3.5 Normal Femoral Neck (Left) 0.751 -0.9 0.8 Normal Total Hip (Left) 0.943 0.0 1.4 Normal Femoral Neck (Right) 0.658 -1.7 -0.1 Osteopenia Total Hip (Right) 0.869 -0.6 0.8 Normal Femoral Neck Mean 0.705 -1.3 0.3 Osteopenia Total Hip Mean 0.906 -0.3 1.1 Normal World Health Organization criteria for BMD impression classify patients as: Normal (T-score at or above -1.0), Osteopenia (T-score between -1.0 and -2.5), or Osteoporosis (T-score at or below -2.5). 10-year Fracture Risk(1): Major Osteoporotic Fracture 17% Hip Fracture 2.1% Reported Risk Factors: [place] (), Neck BMD=0.658, BMI=27.4, parental fracture (1) FRAX(R) Version 3.08. Fracture probability calculated for an untreated patient. Fracture probability may be lower if the patient has received treatment. Clinical Information Provided by Patient: Parent has had a hip fracture Has used the following medications: Vitamin D, Calcium, multi Has the following medical conditions: Hysterectomy Patient maximum height was 64.0 Menopause Age: 49 Drinks caffeinated beverages Onset of menses at age 13 Number of children 2 Impression: The patient has low bone mass, based on the Right Femoral Neck T-score. The patient has risk factors, including: parental hip fracture. Discussion: BONE DENSITY IS LOW AT ONE OR MORE SKELETAL SITES. This patient's lowest T-score is low at one or more skeletal sites. It meets the World Health Organization's (WHO) criteria for ?low bone mass? (T-score between -1.0 and -2.5). The patient's 10-year risk of fracture as calculated by FRAX is less than the threshold where pharmacological therapy is recommended by the National Osteoporosis Foundation (NOF). However, all treatment decisions require clinical judgment and consideration of individual patient factors, including patient preferences, comorbidities, previous drug use, risk factors not captured in the FRAX model (e.g., frailty, falls, vitamin D deficiency, increased bone turnover, interval significant decline in bone density) and possible under or overestimation of fracture risk by FRAX. The patient should follow a healthful lifestyle (good nutrition with adequate calcium and vitamin D, and appropriate weight-bearing exercise). Follow-Up: Consider repeating this study in 2 to 3 years to reassess this patient's status, or sooner if there is some new clinical indication. Reported by: NÉSTOR on 03/10/2024 1:49:00 PM. Reviewed, dictated and finalized at location A.
== END 2024-03-10 13:17 | disposition home or self-care (01) ==
LOC: CHSIMG 13:17
PROVIDERS: PCP Physician Assistant Medical; Visit Provider Physician Assistant Medical
DX: Z12.31 Encounter for screening mammogram for malignant neoplasm of breast (principal); Z78.0 Asymptomatic menopausal state; M85.89 Other specified disorders of bone density and structure, multiple sites
CPT/HCPCS: 77063; 77067; 77080